=== PATIENT | male | born 2000 | race American Indian/Alaskan Native ===

== ENCOUNTER 2019-02-02 15:55 | Emergency (ER) | payer MEDICAID ==
--- NOTE | 2019-02-02 17:44 | XRay Report ---
CHEST 2 VIEWS INDICATION: c/p and sob. COMPARISON: None. FINDINGS: Support devices: None. Heart: Within normal limits. Lungs/Pleura: No acute air space or interstitial disease. No significant pleural effusion. Previous posterior fusion plates with intrapedicular screws are noted. Mild scoliosis remains. IMPRESSION: No acute findings. Signer Name: Isauro Maria MD Signed: 02/02/2019 5:39 PM Workstation Name: [id number]
[2019-02-02] MEDS ORDERED: XOPENEX IH ONE (18:12)
--- NOTE | 2019-02-02 18:27 | Emergency Department Report ---
ED Head Trauma HPI - General Chief complaint: Chest Pain Stated complaint: CHEST PAIN/GUSTAVO/FEVER/CHILLS Time Seen by Provider: 02/02/19 17:11 Source: patient Mode of arrival: Ambulatory Limitations: No Limitations - History of Present Illness Initial comments: Patient is a 18-year-old male presents to the emergency room with complaints of shortness of breath that began 3 days ago. He has associated palpitations, chest pain, chills. Denies any pleuritic chest pain, fever, cough, rhinorrhea, recent illness, lower extremity edema. She has a past medical history of asthma and scoliosis. Patient denies any allergies to medications. - Related Data Allergies/Adverse reactions: Allergies Allergy/AdvReac Type Severity Reaction Status Date / Time house dust mite AdvReac Itching Verified 02/02/19 16:00 ED Review of Systems ROS: Stated complaint: CHEST PAIN/GUSTAVO/FEVER/CHILLS Other details as noted in HPI Comment: All other systems reviewed and negative ED Past Medical Hx - Past Medical History Hx Asthma: Yes - Surgical History Additional Surgical History: SCOLIOSIS SURGERY 2013 - Social History Smoking Status: Unknown if ever smoked Substance Use Type: None ED Physical Exam - General Limitations: No Limitations General appearance: alert, in no apparent distress - Head Head exam: Present: atraumatic, normocephalic - Eye Eye exam: Present: normal appearance - ENT ENT exam: Present: mucous membranes moist - Respiratory Respiratory exam: Present: decreased breath sounds (in the bases ). Absent: respiratory distress, wheezes, rales, rhonchi, stridor - Cardiovascular Cardiovascular Exam: Present: normal rhythm, tachycardia, normal heart sounds. Absent: systolic murmur, diastolic murmur, rubs, gallop - Neurological Exam Neurological exam: Present: alert, oriented X3 - Psychiatric Psychiatric exam: Present: normal affect, normal mood - Skin Skin exam: Present: warm, dry, intact ED Course Vital Signs 02/02/19 16:19 Temperature 98.1 F Pulse Rate 115 H Respiratory 18 Rate Blood Pressure 130/80 O2 Sat by Pulse 100 Oximetry Critical care attestation.: If time is entered above; I have spent that time in minutes in the direct care of this critically ill patient, excluding procedure time. ED Disposition Condition: Stable Referrals: LIDYA KATZ MD [Primary Care Provider] - 3-5 Days
[2019-02-02 18:35] LABS: Basophils % (Auto) 0.5 % (0.0-1.8); Eosinophils % (Auto) 0.3 % (0.0-4.3); Hematocrit 46.5 % (35.5-45.6); Hemoglobin 16.3 gm/dl (11.8-15.2); Lymphocytes # (Auto) 1.2 K/mm3 (1.2-5.4); Lymphocytes % (Auto) 18.7 % (13.4-35.0); Mean Corpuscular HGB Conc 35 % (32-34); Mean Corpuscular Volume 92 fl (84-94); Monocytes # (Auto) 0.5 K/mm3 (0.0-0.8); Platelet Count 283 K/mm3 (140-440); Red Blood Count 5.08 M/mm3 (3.65-5.03); Red Cell Distribution Width 13.2 % (13.2-15.2)
--- NOTE | 2019-02-02 18:39 | Emergency Department Report ---
ED Shortness of Breath HPI - General Chief Complaint: Chest Pain Stated Complaint: CHEST PAIN/GUSTAVO/FEVER/CHILLS Time Seen by Provider: 02/02/19 17:11 Source: patient Mode of arrival: Ambulatory Limitations: No Limitations - History of Present Illness Initial Comments: Patient is a 18-year-old male presents to the emergency room with complaints of shortness of breath that began 3 days ago. He has associated palpitations, chest pain, chills. Denies any pleuritic chest pain, fever, cough, rhinorrhea, recent illness, lower extremity edema. She has a past medical history of asthma and scoliosis. Patient denies any allergies to medications. - Related Data Previous Rx's Medication Instructions Recorded Last Taken Type ALBUTEROL Inhaler (OR & NICU) 1 puff IH Q4HR PRN #1 inha 02/02/19 Unknown Rx [ProAir HFA Inhaler] Colchicine 0.6 mg PO DAILY #5 capsule 02/02/19 Unknown Rx Ibuprofen [Motrin 600 MG tab] 600 mg PO TID 14 Days #42 tablet 02/02/19 Unknown Rx Allergies Allergy/AdvReac Type Severity Reaction Status Date / Time house dust mite AdvReac Itching Verified 02/02/19 16:00 ED Review of Systems ROS: Stated complaint: CHEST PAIN/GUSTAVO/FEVER/CHILLS Other details as noted in HPI Comment: All other systems reviewed and negative ED Past Medical Hx - Past Medical History Hx Asthma: Yes - Surgical History Additional Surgical History: SCOLIOSIS SURGERY 2013 - Social History Smoking Status: Unknown if ever smoked Substance Use Type: None - Medications Home Medications: Home Medications Medication Instructions Recorded Confirmed Last Taken Type ALBUTEROL Inhaler (OR & NICU) 1 puff IH Q4HR PRN #1 inha 02/02/19 Unknown Rx [ProAir HFA Inhaler] Colchicine 0.6 mg PO DAILY #5 capsule 02/02/19 Unknown Rx Ibuprofen [Motrin 600 MG tab] 600 mg PO TID 14 Days #42 tablet 02/02/19 Unknown Rx ED Physical Exam - General Limitations: No Limitations General appearance: alert, in no apparent distress - Head Head exam: Present: atraumatic, normocephalic - Eye Eye exam: Present: normal appearance - ENT ENT exam: Present: mucous membranes moist - Respiratory Respiratory exam: Present: decreased breath sounds (at the bases). Absent: respiratory distress, wheezes, rales, rhonchi, stridor, chest wall tenderness, accessory muscle use, prolonged expiratory - Cardiovascular Cardiovascular Exam: Present: normal rhythm, tachycardia, normal heart sounds. Absent: systolic murmur, diastolic murmur - Neurological Exam Neurological exam: Present: alert, oriented X3 - Psychiatric Psychiatric exam: Present: normal affect, normal mood - Skin Skin exam: Present: warm, dry, intact ED Course Vital Signs 02/02/19 02/02/19 02/02/19 16:19 19:23 19:49 Temperature 98.1 F Pulse Rate 115 H 86 Respiratory 18 20 20 Rate Blood Pressure 130/80 Blood Pressure 114/78 [Right] O2 Sat by Pulse 100 100 Oximetry 02/02/19 19:56 Temperature 98.2 F Pulse Rate 89 Respiratory 16 Rate Blood Pressure Blood Pressure 126/75 [Right] O2 Sat by Pulse 100 Oximetry ED Medical Decision Making - Lab Data Result diagrams: 02/02/19 18:24 02/02/19 18:24 Lab Results 02/02/19 02/02/19 02/02/19 Range/Units 18:24 18:24 18:24 WBC 6.6 (4.5-11.0) K/mm3 RBC 5.08 H (3.65-5.03) M/mm3 Hgb 16.3 H (11.8-15.2) gm/dl Hct 46.5 H (35.5-45.6) % MCV 92 (84-94) fl MCH 32 (28-32) pg MCHC 35 H (32-34) % RDW 13.2 (13.2-15.2) % Plt Count 283 (140-440) K/mm3 Lymph % (Auto) 18.7 (13.4-35.0) % [place] % (Auto) 7.0 (0.0-7.3) % Eos % (Auto) 0.3 (0.0-4.3) % Baso % (Auto) 0.5 (0.0-1.8) % Lymph # 1.2 (1.2-5.4) K/mm3 Weakley # 0.5 (0.0-0.8) K/mm3 Eos # 0.0 (0.0-0.4) K/mm3 Baso # 0.0 (0.0-0.1) K/mm3 Seg Neutrophils % 73.5 H (40.0-70.0) % Seg Neutrophils # 4.8 (1.8-7.7) K/mm3 D-Dimer < 135.0 (0-234) ng/mlDDU Sodium 138 (137-145) mmol/L Potassium 3.9 (3.6-5.0) mmol/L Chloride 99.1 (98-107) mmol/L Carbon Dioxide 25 (22-30) mmol/L Anion Gap 18 mmol/L BUN 8 L (9-20) mg/dL Creatinine 0.8 (0.8-1.5) mg/dL Estimated GFR > 60 ml/min BUN/Creatinine Ratio 10 % Glucose 87 (75-100) mg/dL Calcium 10.0 (8.4-10.2) mg/dL Phosphorus (2.5-4.5) mg/dL Magnesium (1.7-2.3) mg/dL Total Bilirubin 1.80 H (0.1-1.2) mg/dL AST 19 (5-40) units/L ALT 14 (7-56) units/L Alkaline Phosphatase 65 (35-129) units/L Troponin T < 0.010 (0.00-0.029) ng/mL NT-Pro-B Natriuret Pep < 5.0 (0-450) pg/mL Total Protein 8.3 H (6.3-8.2) g/dL Albumin 4.9 (3.9-5) g/dL Albumin/Globulin Ratio 1.4 % TSH (0.270-4.200) mlU/mL 02/02/19 02/02/19 Range/Units 19:00 19:26 WBC (4.5-11.0) K/mm3 RBC (3.65-5.03) M/mm3 Hgb (11.8-15.2) gm/dl Hct (35.5-45.6) % MCV (84-94) fl MCH (28-32) pg MCHC (32-34) % RDW (13.2-15.2) % Plt Count (140-440) K/mm3 Lymph % (Auto) (13.4-35.0) % Weak[place] % (Auto) (0.0-7.3) % Eos % (Auto) (0.0-4.3) % Baso % (Auto) (0.0-1.8) % Lymph # (1.2-5.4) K/mm3 Weak[place] # (0.0-0.8) K/mm3 Eos # (0.0-0.4) K/mm3 Baso # (0.0-0.1) K/mm3 Seg Neutrophils % (40.0-70.0) % Seg Neutrophils # (1.8-7.7) K/mm3 D-Dimer (0-234) ng/mlDDU Sodium (137-145) mmol/L Potassium (3.6-5.0) mmol/L Chloride (98-107) mmol/L Carbon Dioxide (22-30) mmol/L Anion Gap mmol/L BUN (9-20) mg/dL Creatinine (0.8-1.5) mg/dL Estimated GFR ml/min BUN/Creatinine Ratio % Glucose (75-100) mg/dL Calcium (8.4-10.2) mg/dL Phosphorus 3.20 (2.5-4.5) mg/dL Magnesium 2.20 (1.7-2.3) mg/dL Total Bilirubin (0.1-1.2) mg/dL AST (5-40) units/L ALT (7-56) units/L Alkaline Phosphatase (35-129) units/L Troponin T (0.00-0.029) ng/mL NT-Pro-B Natriuret Pep (0-450) pg/mL Total Protein (6.3-8.2) g/dL Albumin (3.9-5) g/dL Albumin/Globulin Ratio % TSH 0.707 (0.270-4.200) mlU/mL - EKG Data EKG shows normal: sinus rhythm Rate: tachycardia - EKG Data 02/03/19 05:[address] elevation and NE depression diffusely consistent with acute pericarditis - Radiology Data Radiology results: report reviewed CHEST 2 VIEWS INDICATION: c/p and sob. COMPARISON: None. FINDINGS: Support devices: None. Heart: Within normal limits. Lungs/Pleura: No acute air space or interstitial disease. No significant pleural effusion. Previous posterior fusion plates with intrapedicular screws are noted. Mild scoliosis remains. IMPRESSION: No acute findings. Signer Name: Isauro Maria MD Signed: 02/02/2019 5:39 PM Workstation Name: [id number] Transcribed By: ES Dictated By: Isauro Maria MD Electronically Authenticated By: Isauro Maria MD Signed Date/Time: 02/02/19 9466 - Medical Decision Making Patient is a 18-year-old male presents to the emergency room with complaints of shortness of breath that began 3 days ago. He has associated palpitations, chest pain, chills. Denies any pleuritic chest pain, fever, cough, rhinorrhea, recent illness, lower extremity edema. She has a past medical history of asthma and scoliosis. Patient denies any allergies to medications. on exam: mildly decreased lung sounds at the bases, heart sounds are normal on auscultation. initial vitals with tachycardia, improved on repeat. pt given xopenex and breath sounds are clear and good air movement. lab work is all stable. d-dimer is negative and troponin is negative, no leukocytosis. EKG shows tachycardia with RAD and ST elevation and NE depression diffusely consistent with acute pericarditis. heart score is very low risk of cardiac event. Wells score is 0, pt is low risk, d-dimer is negative, unlikely to be PE. CXR with no acute process. [facility] medical resource recommends ibuprofen TID for two weeks and colchicine 0.6 mg for acute pericarditis treatment. discussed side effects of medication with pt. advised to please take medication as prescribed. Please follow up with a aircraft line assembler in the next 2-3 days. Return to the emergency room for any worsening symptoms. - Differential Diagnosis arrhythmia, hyperthyroid, pericarditis, ACS, PE, asthma Critical care attestation.: If time is entered above; I have spent that time in minutes in the direct care of this critically ill patient, excluding procedure time. ED Disposition Clinical Impression: SOB (shortness of breath) Chest pain Qualifiers: Chest pain type: unspecified Qualified Code(s): R07.9 - Chest pain, unspecified Acute pericarditis Qualifiers: Pericarditis type: unspecified type Qualified Code(s): I30.9 - Acute pericarditis, unspecified Disposition: DC-01 TO HOME OR SELFCARE Is pt being admited?: No Does the pt Need Aspirin: No Condition: Stable Instructions: Chest Pain (ED) Additional Instructions: Please take medication as prescribed. Please follow up with a aircraft line assembler in the next 2-3 days. Return to the emergency room for any worsening symptoms. Prescriptions: Colchicine 0.6 mg PO DAILY #5 capsule Ibuprofen [Motrin 600 MG tab] 600 mg PO TID 14 Days #42 tablet ALBUTEROL Inhaler (OR & NICU) [ProAir HFA Inhaler] 1 puff IH Q4HR PRN #1 inha PRN Reason: Shortness Of Breath Referrals: ZULMA TOMAS MD [Staff Physician] - 2-3 Days [place] LIDYA BERNAL MD [Primary Care Provider] - 2-3 Days Time of Disposition: 20:29 Print Language: ANGOLAN
[2019-02-02 19:02] LABS: Alanine Aminotransferase 14 units/L (7-56); Albumin 4.9 g/dL (3.9-5); BUN/Creatinine Ratio 10; Blood Urea Nitrogen 8 mg/dL (9-20); Hemolysis Index 14
[2019-02-02 19:57] VITALS: BP 126/75
== END 2019-02-02 20:37 | disposition home or self-care (01) ==
LOC: ED 15:55
DX: I30.9 Acute pericarditis, unspecified (principal); J45.909 Unspecified asthma, uncomplicated; Z98.890 Other specified postprocedural states; Z91.048 Other nonmedicinal substance allergy status; Z87.39 Personal history of other diseases of the musculoskeletal system and connective tissue
CPT/HCPCS: 36415; 71046; 80053; 83735; 83880; 84100; 84443; 84484; 85025; 85379; 93005; 93010; 94640

== ENCOUNTER 2022-02-16 13:23 | Emergency (ER) | payer MEDICAID ==
[2022-02-16] MEDS ORDERED: SODIUM CHLORIDE 0.9% 1000 ML 1,000 ML IV ONE (14:23)
--- NOTE | 2022-02-16 15:09 | XRay Report ---
CHEST 1 VIEW 02/16/2022 2:50 PM INDICATION / CLINICAL INFORMATION: Weakness. COMPARISON: 02/02/19 FINDINGS: SUPPORT DEVICES: None. HEART / MEDIASTINUM: No significant abnormality. LUNGS / PLEURA: No significant pulmonary or pleural abnormality. No pneumothorax. ADDITIONAL FINDINGS: Thoracic spine fusion hardware is unchanged. IMPRESSION: 1. No acute findings. No change. Signer Name: Saida Chris MD Signed: 02/16/2022 3:05 PM Workstation Name: [id number]
[2022-02-16 16:00] LABS: Alanine Aminotransferase 10 units/L (7-56); Albumin 5.4 g/dL (3.9-5); BUN/Creatinine Ratio 12; Blood Urea Nitrogen 11 mg/dL (9-20); Calcium 10.2 mg/dL (8.4-10.2); Hemolysis Index 12
[2022-02-16 16:03] LABS: Basophils % (Auto) 0.5 % (0.0-1.8); Hematocrit 47.1 % (35.5-45.6); Hemoglobin 16.1 gm/dl (11.8-15.2); Lymphocytes # (Auto) 1.1 K/mm3 (1.2-5.4); Lymphocytes % (Auto) 14.4 % (13.4-35.0); Mean Corpuscular HGB Conc 34 % (32-34); Mean Corpuscular Volume 92 fl (84-94); Monocytes # (Auto) 0.3 K/mm3 (0.0-0.8); Monocytes % (Auto) 4.6 % (0.0-7.3); Platelet Count 355 K/mm3 (140-440); Red Blood Count 5.13 M/mm3 (3.65-5.03); Red Cell Distribution Width 13.9 % (13.2-15.2)
[2022-02-16 16:15] LABS: INR 0.97 (0.87-1.13)
--- NOTE | 2022-02-16 18:00 | Emergency Department Report ---
ED General Adult HPI - General Chief complaint: Weakness Stated complaint: OVERHEATED PUI?: No Time Seen by Provider: 02/16/22 14:23 Source: EMS Mode of arrival: Stretcher Limitations: No Limitations - History of Present Illness Initial comments: Patient working outside today from 10am to 1pm c/o being dehydrated. AAOx3. Drank coffee and gadtorade. Does express any other symtoms except that he is dehadrated. -: Gradual, hour(s) Location: head Radiation: non-radiation Severity scale (0 -10): 0 Consistency: intermittent Improves with: none Worsens with: none Associated Symptoms: headaches, weakness. denies: denies other symptoms, confusion, chest pain - Related Data Previous Rx's Medication Instructions Recorded Last Taken Type Albuterol Mdi (or & Nicu Only) 1 puff IH Q4HR PRN #1 inha 02/02/19 Unknown Rx [ProAir HFA Inhaler] Colchicine 0.6 mg PO DAILY #5 capsule 02/02/19 Unknown Rx Ibuprofen [Motrin 600 MG tab] 600 mg PO TID 14 Days #42 tablet 02/02/19 Unknown Rx Allergies Allergy/AdvReac Type Severity Reaction Status Date / Time house dust mite AdvReac Itching Verified 02/16/22 14:06 ED Review of Systems ROS: Stated complaint: OVERHEATED Other details as noted in HPI Constitutional: denies: chills, fever Eyes: denies: eye pain, eye discharge, vision change ENT: denies: ear pain, throat pain Respiratory: denies: cough, shortness of breath, wheezing Cardiovascular: denies: chest pain, palpitations Endocrine: no symptoms reported Gastrointestinal: denies: abdominal pain, nausea, diarrhea Genitourinary: denies: urgency, dysuria Musculoskeletal: denies: back pain, joint swelling, arthralgia Skin: denies: rash, lesions Neurological: denies: headache, weakness, paresthesias Psychiatric: denies: anxiety, depression Hematological/Lymphatic: denies: easy bleeding, easy bruising ED Past Medical Hx - Past Medical History Hx Hypertension: No Hx CVA: No Hx Asthma: Yes - Surgical History Additional Surgical History: SCOLIOSIS SURGERY 2013 - Social History Smoking Status: Unknown if ever smoked Substance Use Type: None - Medications Home Medications: Home Medications Medication Instructions Recorded Confirmed Last Taken Type Albuterol Mdi (or & Nicu Only) 1 puff IH Q4HR PRN #1 inha 02/02/19 Unknown Rx [ProAir HFA Inhaler] Colchicine 0.6 mg PO DAILY #5 capsule 02/02/19 Unknown Rx Ibuprofen [Motrin 600 MG tab] 600 mg PO TID 14 Days #42 tablet 02/02/19 Unknown Rx ED Physical Exam - General Limitations: No Limitations General appearance: alert, in no apparent distress - Head Head exam: Present: atraumatic, normocephalic - Eye Eye exam: Present: normal appearance - ENT ENT exam: Present: mucous membranes moist - Neck Neck exam: Present: normal inspection - Respiratory Respiratory exam: Present: normal lung sounds bilaterally. Absent: respiratory distress - Cardiovascular Cardiovascular Exam: Present: regular rate, normal rhythm. Absent: systolic murmur, diastolic murmur, rubs, gallop - GI/Abdominal GI/Abdominal exam: Present: soft, normal bowel sounds - Rectal Rectal exam: Present: deferred - Extremities Exam Extremities exam: Present: normal inspection - Back Exam Back exam: Present: normal inspection - Neurological Exam Neurological exam: Present: alert, oriented X3 - Psychiatric Psychiatric exam: Present: normal affect, normal mood - Skin Skin exam: Present: warm, dry, intact, normal color. Absent: rash ED Course Vital Signs 02/16/22 13:56 Temperature 98.4 F Pulse Rate 123 H Respiratory 20 Rate Blood Pressure 138/83 [Left] ED Medical Decision Making - Lab Data Result diagrams: 02/16/22 15:16 02/16/22 15:16 - Radiology Data Radiology results: report reviewed, image reviewed Critical care attestation.: If time is entered above; I have spent that time in minutes in the direct care of this critically ill patient, excluding procedure time. ED Disposition Clinical Impression: Dehydration, Heat exhaustion Disposition: 01 HOME / SELF CARE / HOMELESS Is pt being admited?: No Does the pt Need Aspirin: No Condition: Stable Instructions: Heat Exhaustion
[2022-02-16 20:48] VITALS: BP 118/76
== END 2022-02-16 19:30 | disposition home or self-care (01) ==
LOC: ED 13:23
DX: T67.5XXA Heat exhaustion, unspecified, initial encounter (principal); E86.0 Dehydration; J45.909 Unspecified asthma, uncomplicated; Z91.09 Other allergy status, other than to drugs and biological substances; X58.XXXA Exposure to other specified factors, initial encounter; Y93.89 Activity, other specified; Y92.89 Other specified places as the place of occurrence of the external cause; Y99.8 Other external cause status
CPT/HCPCS: 36415; 71045; 80053; 82010; 82550; 83735; 83880; 84484; 85025; 85610; 86140; 96360; 96361; 99284; J7030